=== PATIENT | male | born 1975 | race Caucasian/White ===

== ENCOUNTER 2020-03-17 17:36 | Emergency (ER) | payer OTHER ==
[~2020-03-17] VITALS: Ht 170.2 cm; Wt 81.6 kg
--- NOTE | 2020-03-17 17:49 | NUR ---
PT AMBULATED TO ER BED 09
[2020-03-17 17:52] VITALS: BP 139/79
[2020-03-17] MEDS ORDERED: MECLIZINE 25 MG TAB PO ONE (18:00)
--- NOTE | 2020-03-17 18:09 | NUR ---
44 Y/O MALE C/O DIZZINESS/NAUSEA AND OCCIPITAL HEADACHE X3 DAYS. PATIENT STATES HE HAS BEEN HAVING MULTIPLE EPISODE OF DIZZINESS AND NAUSEA OVER THE LAST 3 DAYS, BUT TODAY THE EPISODE HAS LASTED ABOUT 5 HOURS. PT DENIES ANY EPISODES OF EMESIS OF DIARRHEA. ALSO C/O EAR PAIN. DENIES SOB/FEVER/COUGH. NO PMH NKA
--- NOTE | 2020-03-17 18:15 | NUR ---
PT TAKEN TO CT VIA WHEELCHAIR
[2020-03-17 18:55] VITALS: BP 128/75
--- NOTE | 2020-03-17 19:31 | NUR ---
Dr. Bedolla examining patient.
--- NOTE | 2020-03-17 19:35 | NUR ---
PT DISCHARGED AND PROVIDED DISCHARGE EDUCATION BY DR. BUSTAMANTE. PT RELEASED IN STABLE CONDITION. PT GIVEN RX OF AUGMENTIN AND ANTIVERT. ALL QUESTIONS ASKED AND ANSWERED.
== END 2020-03-17 19:35 | disposition home or self-care (01) ==
LOC: MED 17:36
DX: H66.91 Otitis media, unspecified, right ear (principal); R42 Dizziness and giddiness
CPT/HCPCS: 70450; 93005; 99284; J8597